=== PATIENT | male | born 1985 | race Hispanic/Latino ===

== ENCOUNTER 2020-10-07 11:31 | Emergency (ER) | payer OTHER ==
[2020-10-07 12:14] VITALS: BP 139/91
--- NOTE | 2020-10-07 12:16 | Emergency Department Report ---
ED Upper Extremity Inj HPI - General Chief Complaint: Extremity Injury, Upper Stated Complaint: RIGHT HAND INJURY Time Seen by Provider: 10/07/20 12:13 Source: patient Mode of arrival: Ambulatory Limitations: No Limitations - History of Present Illness Initial Comments: Patient is a 35-year-old male presents emergency room complaints of a crush injury to the right middle finger that occurred just prior to arrival. Patient states that it got crushed between piece of work equipment and a truck. He is right-hand dominant. He denies ever injuring this finger in the past. He states he has injured another finger on the right hand. He denies any numbness or weakness. He denies any significant bleeding. he is able to move the digits. He states his tetanus immunization is up-to-date. No past medical history. No allergies to medications. - Related Data Previous Rx's Medication Instructions Recorded Last Taken Type Neomycin/Bacitracin/Polymyxinb 1 applicatio TP BID #14 oint...g. 10/07/20 Unknown Rx [Triple Antibiotic Ointment] cephALEXin [Keflex] 500 mg PO QID 7 Days #28 cap 10/07/20 Unknown Rx Allergies Allergy/AdvReac Type Severity Reaction Status Date / Time No Known Allergies Allergy Unverified 10/07/20 12:13 ED Review of Systems ROS: Stated complaint: RIGHT HAND INJURY Other details as noted in HPI Comment: All other systems reviewed and negative ED Past Medical Hx - Past Medical History Previous Medical History?: No - Social History Smoking Status: Never Smoker Substance Use Type: Alcohol - Medications Home Medications: Home Medications Medication Instructions Recorded Confirmed Last Taken Type Neomycin/Bacitracin/Polymyxinb 1 applicatio TP BID #14 oint...g. 10/07/20 Unknown Rx [Triple Antibiotic Ointment] cephALEXin [Keflex] 500 mg PO QID 7 Days #28 cap 10/07/20 Unknown Rx ED Physical Exam - General Limitations: No Limitations General appearance: alert, in no apparent distress - Head Head exam: Present: atraumatic, normocephalic - Eye Eye exam: Present: normal appearance - ENT ENT exam: Present: mucous membranes moist - Respiratory Respiratory exam: Absent: respiratory distress, accessory muscle use - Extremities Exam Extremities exam: Present: other (1 cm irregular shaped laceration present to the palmar surface of the right middle finger, appears superficial, no active bleeding, no muscle/tendon involvement, no foreign body, slightly decreased flexion of the right middle finger, no deformity, no nail involvement, neurovascularly intact) - Neurological Exam Neurological exam: Present: alert, oriented X3 - Psychiatric Psychiatric exam: Present: normal affect, normal mood - Skin Skin exam: Present: warm, dry ED Course Vital Signs 10/07/20 12:11 Temperature 97.1 F L Pulse Rate 67 Respiratory 20 Rate Blood Pressure 139/91 O2 Sat by Pulse 98 Oximetry ED Medical Decision Making - Radiology Data Radiology results: report reviewed Ordering Physician: VILLA LOUIS Date of Service: 10/07/20 Procedure(s): XR hand 3+V RT Accession Number(s): [id number] cc: VILLA LOUIS Fluoro Time In Minutes: RIGHT HAND 3 VIEW(S) INDICATION / CLINICAL INFORMATION: right middle finger crush injury COMPARISON: None available. FINDINGS: BONES / JOINT(S): No acute fracture or subluxation. No significant arthritis. SOFT TISSUES: Mild soft tissue edema at the mid aspect of the long finger. ADDITIONAL FINDINGS: None. Signer Name: Darin Saenz MD Signed: 10/07/2020 12:47 PM Workstation Name: [id number] Transcribed By: RH Dictated By: DARIN SAENZ III Electronically Authenticated By: DARIN SAENZ III Signed Date/Time: 10/07/20 124 DD/ 45 TD/TT: - Medical Decision Making Patient is a 35-year-old male presents emergency room complaints of a crush injury to the right middle finger that occurred just prior to arrival. Patient states that it got crushed between piece of work equipment and a truck. He is right-hand dominant. He denies ever injuring this finger in the past. He states he has injured another finger on the right hand. He denies any numbness or weakness. He denies any significant bleeding. he is able to move the digits. He states his tetanus immunization is up-to-date. No past medical history. No allergies to medications. Vitals are stable. On exam:1 cm irregular shaped laceration present to the palmar surface of the right middle finger, appears superficial, no active bleeding, no muscle/tendon involvement, no foreign body, slightly decreased flexion of the right middle finger, no deformity, no nail involvement, neurovascularly intact. X-ray right hand: BONES / JOINT(S): No acute fracture or subluxation. No significant arthritis. SOFT TISSUES: Mild soft tissue edema at the mid aspect of the long finger. ADDITIONAL FINDINGS: None. Laceration is superficial with flap, does not need repair, wound care performed by nurse irrigated with saline and scrubbed with Betadine and triple antibiotic placed. Patient placed in splint by nurse and remained neurovascularly intact. Discussed all results with patient answered questions. Patient given orthopedic follow-up. Patient given prescription for Keflex and triple antibiotic ointment. Advised patient Please use medication as prescribed. Please keep area clean, dry, covered. Wash with antibacterial soap and water and pat dry. No hot tub, no pool. Showering is fine. Follow-up with orthopedic doctor. Return to emergency room for new or worsening symptoms. Critical care attestation.: If time is entered above; I have spent that time in minutes in the direct care of this critically ill patient, excluding procedure time. ED Disposition Clinical Impression: Crushing injury of right middle finger Qualifiers: Encounter type: initial encounter Qualified Code(s): S67.192A - Crushing injury of right middle finger, initial encounter Laceration of right middle finger Qualifiers: Encounter type: initial encounter Damage to nail status: without damage Foreign body presence: without foreign body Qualified Code(s): S61.212A - Laceration without foreign body of right middle finger without damage to nail, initial encounter Disposition: DC-01 TO HOME OR SELFCARE Is pt being admited?: No Does the pt Need Aspirin: No Condition: Stable Instructions: Laceration Care, Adult, Crush Injury of the Hand, [id number] Additional Instructions: Please use medication as prescribed. Please keep area clean, dry, covered. Wash with antibacterial soap and water and pat dry. No hot tub, no pool. Showering is fine. Follow-up with orthopedic doctor. Return to emergency room for new or worsening symptoms. Prescriptions: cephALEXin [Keflex] 500 mg PO QID 7 Days #28 cap Neomycin/Bacitracin/Polymyxinb [Triple Antibiotic Ointment] 1 applicatio TP BID #14 oint...g. Referrals: DARIN HUYNH MD [Staff Physician] - 3-5 Days [facility] [Provider Group] - 3-5 Days Time of Disposition: 13:28 Print Language: CAMEROONIAN
--- NOTE | 2020-10-07 12:52 | XRay Report ---
RIGHT HAND 3 VIEW(S) INDICATION / CLINICAL INFORMATION: right middle finger crush injury COMPARISON: None available. FINDINGS: BONES / JOINT(S): No acute fracture or subluxation. No significant arthritis. SOFT TISSUES: Mild soft tissue edema at the mid aspect of the long finger. ADDITIONAL FINDINGS: None. Signer Name: Darin Seanz MD Signed: 10/07/2020 12:47 PM Workstation Name: [id number]
[2020-10-07] MEDS ORDERED: NEOMY 3.5 MG/BACIT 400 UNITS/POLY B 5000 UNITS/GM OINT PACKET TP ONE (13:28)
== END 2020-10-07 14:08 | disposition home or self-care (01) ==
LOC: ED 11:31
DX: S61.212A Laceration without foreign body of right middle finger without damage to nail, initial encounter (principal); S67.192A Crushing injury of right middle finger, initial encounter; Z79.899 Other long term (current) drug therapy; W23.0XXA Caught, crushed, jammed, or pinched between moving objects, initial encounter; Y93.89 Activity, other specified; Y92.89 Other specified places as the place of occurrence of the external cause; Y99.8 Other external cause status
CPT/HCPCS: 29130; 73130; 99283; A6250